=== PATIENT | male | born 1930 | race Caucasian/White ===

== ENCOUNTER 2018-08-03 22:04 | Inpatient (IN) | payer OTHER ==
[~2018-08-03] VITALS: Ht 165.1 cm; Wt 82.6 kg
[2018-08-03 22:10] VITALS: BP_SYST 155
[2018-08-03 23:04] LABS: BILIRUBIN,URINE NEGATIVE (NEGATIVE); BLOOD, URINE NEGATIVE (NEGATIVE); CLARITY/URINE CLEAR (CLEAR); COLOR,URINE YELLOW (YELLOW); GLUCOSE,URINE NEGATIVE (NEGATIVE); KETONES,URINE NEGATIVE (NEGATIVE); LEUKOCYTE ESTERASE ,URINE NEGATIVE (NEGATIVE); NITRITE, URINE NEGATIVE (NEGATIVE); PH,URINE 6.5 (5.0-8.0); PROTEIN URINE NEGATIVE (NEGATIVE); UROBILINOGEN,URINE 0.2 (0.2-1.0)
[2018-08-03 23:38] LABS: BASOPHILS # (AUTO) 0.1 K/uL (0.0-0.2); BASOPHILS % (AUTO) 1.2 % (0.0-2.0); EOSINOPHILS # (AUTO) 0.1 K/uL (0.0-0.4); EOSINOPHILS % (AUTO) 2.2 % (0.0-4.0); HEMATOCRIT 40.9 % (36-54); HEMOGLOBIN 13.4 g/dL (14.0-18.0); LYMPHOCYTES # (AUTO) 1.2 K/uL (1.0-5.5); LYMPHOCYTES % (AUTO) 18.8 % (20.5-51.5); MEAN CORPUSCULAR HEMOGLOBIN 31 pg (27-31); MEAN CORPUSCULAR HGB CONC 33 % (32-36); MEAN CORPUSCULAR VOLUME 94 fL (79.0-98.0); MONOCYTES # (AUTO) 0.4 K/uL (0.0-1.0); MONOCYTES % (AUTO) 6.5 % (1.7-9.3); NEUTROPHILS # (AUTO) 4.6 K/uL (1.8-7.7); NEUTROPHILS % (AUTO) 71.3 % (40.0-70.0); PLATELET COUNT (AUTO) 175 K/uL (130-430); RED BLOOD CELL COUNT(AUTO) 4.34 MIL/uL (4.2-6.2); RED CELL DISTRIBUTION WIDTH 13.1 % (9.0-15.0); WHITE BLOOD COUNT (AUTO) 6.4 K/uL (4.8-10.8)
[2018-08-03 23:43] LABS: ANION GAP 7 (5-15); CALCIUM 9.1 mg/dL (8.4-11.0); CHLORIDE 103 mmol/L (98-107); CREATININE 0.89 mg/dL (0.55-1.30); GLUCOSE 128 mg/dL (70-99); POTASSIUM 4.1 mmol/L (3.5-5.1); SODIUM SERUM 140 mmol/L (136-145); UREA NITROGEN, BLOOD 23 mg/dL (8-21)
[2018-08-03 23:55] LABS: ALANINE AMINOTRANSFERASE 17 U/L (12-78); ALBUMIN 3.1 g/dL (3.4-4.8); ASPARTATE AMINOTRANSFERASE 21 U/L (10-37); TOTAL BILIRUBIN 0.7 mg/dL (0.0-1.0)
[2018-08-04] VITALS (7 sets, daily range): BP systolic 115–153
[2018-08-04] MEDS ORDERED: LISI-600 PO (00:43)
[2018-08-04] MEDS ORDERED: VITA-285 PO (00:43)
[2018-08-04] MEDS ORDERED: MULT1CAP34 PO (00:43)
[2018-08-04] MEDS ORDERED: LORazepam 2 MG/ML VIAL IVP PRN (06:00)
[2018-08-04] MEDS ORDERED: HYDROcodone/ACETAMIN 10-325 MG TAB PO PRN (06:00)
[2018-08-04] MEDS ORDERED: HYDROcodone/ACETAMIN 5-325 MG TAB (NORCO/ VICODIN) PO PRN (06:00)
[2018-08-04] MEDS ORDERED: ONDANSETRON HCL 4 MG/2 ML VIAL IVP PRN (06:00)
[2018-08-04] MEDS ORDERED: ACETAMINOPHEN 325 MG TABLET PO PRN (06:00)
[2018-08-04] MEDS: NORMAL SALINE 5 ML DISP.SYRIN IVF SCH ×3 (06:51→21:40)
[2018-08-04 07:55] LABS: HEMATOCRIT 37.4 % (36-54); HEMOGLOBIN 12.8 g/dL (14.0-18.0); MEAN CORPUSCULAR HEMOGLOBIN 32 pg (27-31); MEAN CORPUSCULAR HGB CONC 34 % (32-36); MEAN CORPUSCULAR VOLUME 94 fL (79.0-98.0); PLATELET COUNT (AUTO) 140 K/uL (130-430); WHITE BLOOD COUNT (AUTO) 6.8 K/uL (4.8-10.8)
[2018-08-04 08:00] LABS: ALANINE AMINOTRANSFERASE 17 U/L (12-78); ANION GAP 7 (5-15); ASPARTATE AMINOTRANSFERASE 19 U/L (10-37); CALCIUM 8.5 mg/dL (8.4-11.0); CHLORIDE 105 mmol/L (98-107); CHOLESTEROL 160 mg/dL (<200); CREATININE 0.72 mg/dL (0.55-1.30); GLUCOSE 109 mg/dL (70-99); HDL CHOLESTEROL 51 mg/dL (>45); LDL CHOLESTEROL 100 mg/dL (<100); PHOSPHORUS 3.7 mg/dL (2.7-4.5); POTASSIUM 4.1 mmol/L (3.5-5.1); SODIUM SERUM 138 mmol/L (136-145); TOTAL BILIRUBIN 0.6 mg/dL (0.0-1.0); TRIGLYCERIDES 88 mg/dL (30-150); UREA NITROGEN, BLOOD 21 mg/dL (8-21)
[2018-08-04 08:38] LABS: BAND % (MANUAL) 2 % (0-6); BASOPHILS % (MANUAL) 0 % (0-2); EOSINOPHILS % (MANUAL) 2 % (0-7); LYMPHOCYTES % (MANUAL) 30 % (20-46); MONOCYTES % (MANUAL) 11 % (0-11)
[2018-08-04] MEDS: LISINOPRIL 20 MG TABLET PO SCH (09:06)
[2018-08-04] MEDS: MULTIVITAMINS TAB 1 TABLET PO SCH (09:06)
[2018-08-04] MEDS: VITAMIN B COMPLEX 1 CAP/TAB PO SCH (09:06)
[2018-08-05 00:05] VITALS: BP_SYST 139
[2018-08-05] MEDS: NORMAL SALINE 5 ML DISP.SYRIN IVF SCH (05:09)
[2018-08-05 07:04] LABS: BASOPHILS % (AUTO) 0.7 % (0.0-2.0); EOSINOPHILS # (AUTO) 0.2 K/uL (0.0-0.4); HEMATOCRIT 40.4 % (36-54); HEMOGLOBIN 13.3 g/dL (14.0-18.0); LYMPHOCYTES # (AUTO) 1.8 K/uL (1.0-5.5); LYMPHOCYTES % (AUTO) 31.4 % (20.5-51.5); MEAN CORPUSCULAR HEMOGLOBIN 32 pg (27-31); MEAN CORPUSCULAR HGB CONC 33 % (32-36); MEAN CORPUSCULAR VOLUME 95 fL (79.0-98.0); MONOCYTES # (AUTO) 0.5 K/uL (0.0-1.0); MONOCYTES % (AUTO) 9.2 % (1.7-9.3); NEUTROPHILS # (AUTO) 3.2 K/uL (1.8-7.7); NEUTROPHILS % (AUTO) 54.7 % (40.0-70.0); PLATELET COUNT (AUTO) 185 K/uL (130-430); RED BLOOD CELL COUNT(AUTO) 4.23 MIL/uL (4.2-6.2); RED CELL DISTRIBUTION WIDTH 13.3 % (9.0-15.0); WHITE BLOOD COUNT (AUTO) 5.7 K/uL (4.8-10.8)
[2018-08-05 07:13] LABS: ANION GAP 8 (5-15); CALCIUM 8.5 mg/dL (8.4-11.0); CHLORIDE 104 mmol/L (98-107); GLUCOSE 104 mg/dL (70-99); POTASSIUM 4.1 mmol/L (3.5-5.1); SODIUM SERUM 140 mmol/L (136-145); UREA NITROGEN, BLOOD 18 mg/dL (8-21)
[2018-08-05 08:03] VITALS: BP_SYST 132
[2018-08-05] MEDS: LISINOPRIL 20 MG TABLET PO SCH (08:44)
[2018-08-05] MEDS: MULTIVITAMINS TAB 1 TABLET PO SCH (08:44)
[2018-08-05] MEDS: VITAMIN B COMPLEX 1 CAP/TAB PO SCH (08:44)
[2018-08-05 11:21] VITALS: BP_SYST 122
[2018-08-05 12:29] VITALS: BP_SYST 122
== END 2018-08-05 13:25 | disposition home or self-care (01) | DRG 312 ==
LOC: SED 22:04 → STU 08-04 01:40
PROVIDERS: ADMIT Preventive Medicine Preventive Medicine/Occupational Environmental Medicine; ATTEND Preventive Medicine Preventive Medicine/Occupational Environmental Medicine
DX: I95.1 Orthostatic hypotension (principal); I10 Essential (primary) hypertension; W18.39XA Other fall on same level, initial encounter; R73.9 Hyperglycemia, unspecified; R00.0 Tachycardia, unspecified; Y93.89 Activity, other specified; Y92.098 Other place in other non-institutional residence as the place of occurrence of the external cause; Y99.8 Other external cause status
CPT/HCPCS: 36415; 80048; 80053; 80061; 81003; 83735-TC; 84100-TC; 84443-TC; 84484; 85007; 85025; 85027; 93005; 93306; 93880; 99285; G0378